=== PATIENT | male | born 1940 | race Caucasian/White ===

== ENCOUNTER 2016-09-08 09:10 | Observation (INO) | payer OTHER ==
[~2016-09-08] VITALS: Ht 188 cm; Wt 96.0 kg
[2016-09-08] VITALS (8 sets, daily range): BP systolic 116–153; BP diastolic 64–93; PULSE 72–83; RESP 12–22; TEMP 97.6–99.8; O2SAT 96–100
--- NOTE | 2016-09-08 09:43 | PD ---
HPI Chief Complaint: Skin Problem Time Seen by Provider: 09:35 Travel History International Travel<30 days: No Contact w/Intl Traveler<30days: No Traveled to known affect area: No History of Present Illness HPI This patient is 75-year-old male who lives alone. He denies having any relatives in the area. He does not ever go to doctors. He takes no medications. Seems like he basically neglects himself. He is had severe edema for years starting in the feet and working its way up his legs and thighs now on his scrotum and abdominal wall. He decided to come in today to the emergency room to have it checked out. He has no formal diagnosis but as noted never goes to a doctor. He denies drinking or smoking or drug use. He says he quit driving a few years ago and walks everywhere that he needs to go. Symptoms severity is moderate. Duration is many years. No alleviating factors PFSH Social History Alcohol Use: No Tobacco Use: No Substance Use: No Allergies-Medications (Allergen,Severity, Reaction): Coded Allergies: No Known Allergies (Unverified , 09/08/16) Review of Systems General / Constitutional: No: Fever Eyes: No: Visual changes HENT: No: Headaches Cardiovascular: Positive: Irregular Rhythm, Edema, No: Chest Pain or Discomfort Respiratory: No: Shortness of Breath Gastrointestinal: No: Abdominal Pain Genitourinary: No: Dysuria Musculoskeletal: Positive: Weakness, Edema, No: Pain Skin: No Rash Neurologic: Positive: Weakness Psychiatric: No: Depression Endocrine: No: Polydipsia Hematologic/Lymphatic: No: Easy Bruising Physical Exam Narrative GENERAL: Well-nourished, well-developed patient in no apparent distress. SKIN: Focused skin assessment reveals chronic hyperpigmentation and skin thickening changes in the feet and lower legs. Skin is Warm and dry. Candidal rash under the scrotum. HEAD: Atraumatic. Normocephalic. EYES: Pupils equal and round. No scleral icterus. No injection or drainage. ENT: No nasal bleeding or discharge. Mucous membranes pink and moist. NECK: Trachea midline. No JVD. CARDIOVASCULAR: Regular rate and rhythm. No murmur appreciated. RESPIRATORY: No accessory muscle use. Clear to auscultation. Breath sounds equal bilaterally. GASTROINTESTINAL: Abdomen soft, non-tender, nondistended. Hepatic and splenic margins not palpable. MUSCULOSKELETAL: No obvious deformities. No clubbing. No cyanosis. Prominent pitting edema in the feet and lower legs and thighs and abdominal wall in the lower quadrants. NEUROLOGICAL: Awake and alert. No obvious cranial nerve deficits. Motor grossly within normal limits. Normal speech. PSYCHIATRIC: Appropriate mood and affect; insight and judgment poor. : Has massive scrotal edema. There is a candidal rash in the groin. Has some edema of the penile shaft as well. Data Data Last Documented VS Vital Signs Date Time Temp Pulse Resp B/P Pulse Ox O2 Delivery O2 Flow Rate FiO2 09/08/16 11:01 72 16 143/84 96 Room Air 09/08/16 09:18 99.8 Orders Complete Blood Count With Diff (09/08/16 09:35) Comprehensive Metabolic Panel (09/08/16 09:35) B-Type Natriuretic Peptide (09/08/16 09:35) Act Partial Throm Time (Ptt) (09/08/16 09:35) Prothrombin Time / Inr (Pt) (09/08/16 09:35) Iv Access Insert/Monitor (09/08/16 09:35) Electrocardiogram (09/08/16 09:35) Ecg Monitoring (09/08/16 09:35) Oximetry (09/08/16 09:35) Chest, Single Ap (09/08/16 09:35) Sodium Chloride 0.9% Flush (Ns Flush) (09/08/16 09:45) Furosemide Inj (Lasix Inj) (09/08/16 09:45) Admit Order (Ed Use Only) (09/08/16 11:49) Labs Laboratory Tests Test 09/08/16 09/08/16 09:45 10:45 White Blood Count 5.6 TH/MM3 Red Blood Count 3.98 MIL/MM3 Hemoglobin 12.8 GM/DL Hematocrit 36.8 % Mean Corpuscular Volume 92.5 FL Mean Corpuscular Hemoglobin 32.2 PG Mean Corpuscular Hemoglobin 34.8 % Concent Red Cell Distribution Width 16.5 % Platelet Count 115 TH/MM3 Mean Platelet Volume 10.1 FL Neutrophils (%) (Auto) 68.9 % Lymphocytes (%) (Auto) 16.8 % Monocytes (%) (Auto) 11.9 % Eosinophils (%) (Auto) 1.8 % Basophils (%) (Auto) 0.6 % Neutrophils # (Auto) 3.9 TH/MM3 Lymphocytes # (Auto) 0.9 TH/MM3 Monocytes # (Auto) 0.7 TH/MM3 Eosinophils # (Auto) 0.1 TH/MM3 Basophils # (Auto) 0.0 TH/MM3 CBC Comment DIFF FINAL Differential Comment Prothrombin Time 12.6 SEC Prothromb Time International 1.1 RATIO Ratio Activated Partial 31.1 SEC Thromboplast Time Sodium Level 128 MEQ/L Potassium Level 4.0 MEQ/L Chloride Level 96 MEQ/L Carbon Dioxide Level 24.1 MEQ/L Anion Gap 8 MEQ/L Blood Urea Nitrogen 25 MG/DL Creatinine 0.76 MG/DL Estimat Glomerular Filtration 100 ML/MIN Rate Random Glucose 98 MG/DL Calcium Level 8.5 MG/DL Total Bilirubin 1.5 MG/DL Aspartate Amino Transf 42 U/L (AST/SGOT) Alanine Aminotransferase 35 U/L (ALT/SGPT) Alkaline Phosphatase 97 U/L B-Type Natriuretic Peptide 530 PG/ML Total Protein 6.3 GM/DL Albumin 3.1 GM/DL MDM Medical Decision Making Medical Screen Exam Complete: Yes Emergency Medical Condition: Yes Medical Record Reviewed: Yes Differential Diagnosis Anasarca, liver failure, renal failure, congestive heart failure Narrative Course I have reviewed the patient's electronic medical record. Patient is never been to the ER before. Patient has normal vital signs but has prominent anasarca. IV placed I gave him 60 mg IV Lasix CBC shows no major abnormality Metabolic profile shows normal renal function LFTs are normal BNP is slightly elevated Coagulation studies are normal I reviewed his EKG which shows atrial fibrillation but rate controlled I reviewed his chest x-ray shows cardiomegaly with some findings of congestive failure Is put out over a liter and diuresis so far. He has significant anasarca with CHF and A. fib I reviewed with hospitalist who recommends observation on telemetry Admission order will be changed to reflect that. Extended cardiac monitoring Diagnosis Primary Impression: Anasarca Additional Impressions: Congestive heart failure Qualified Code: I50.9 - Acute congestive heart failure, unspecified congestive heart failure type Atrial fibrillation Qualified Code: I48.91 - Atrial fibrillation, unspecified type Admitting Information Admitting Physician Requests: Observation Nahid Nugent MD Sep 08, 2016 09:43
[2016-09-08] MEDS ORDERED: SODIUM CHLORIDE 0.9% FLUSH 10 ML FLUSH IVF PRN (09:45)
[2016-09-08] MEDS ORDERED: FUROSEMIDE 100 MG/10 ML VIAL IVP ONE (09:45)
[2016-09-08 10:20] LABS: AUTOMATED NEUTROPHIL # 3.9 TH/MM3 (1.8-7.7); BASOPHIL % 0.6 % (0.0-2.0); EOSINOPHIL # 0.1 TH/MM3 (0-0.4); EOSINOPHIL % 1.8 % (0.0-4.0); HEMATOCRIT 36.8 % (39.0-51.0); HEMO FLAGS DIFF FINAL; LYMPH % 16.8 % (9.0-44.0); LYMPHOCYTE # 0.9 TH/MM3 (1.0-4.8); MEAN CELL VOLUME 92.5 FL (80.0-100.0); MEAN CORPUSCULAR HEMOGLOBIN 32.2 PG (27.0-34.0); MEAN CORPUSCULAR HGB CONC 34.8 % (32.0-36.0); MONO % 11.9 % (0.0-8.0); NEUT % 68.9 % (16.0-70.0); PLATELET COUNT 115 TH/MM3 (150-450); RED BLOOD COUNT 3.98 MIL/MM3 (4.50-5.90); RED CELL DISTRIBUTION WIDTH 16.5 % (11.6-17.2); WHITE BLOOD COUNT 5.6 TH/MM3 (4.0-11.0)
[2016-09-08 10:27] LABS: INTERNATIONAL NORMALIZED RATIO 1.1 RATIO; PROTHROMBIN TIME - PATIENT 12.6 SEC (9.8-11.6)
[2016-09-08 10:28] LABS: APTT (PATIENT) 31.1 SEC (24.3-30.1)
--- NOTE | 2016-09-08 10:29 | RADRPT ---
EXAM DATE/TIME: 09/08/2016 10:10 [facility] COMPARISON: No previous studies available for comparison. INDICATIONS : Short of breath, swelling, weight gain. MEDICAL HISTORY : None. SURGICAL HISTORY : None. ENCOUNTER: Initial ACUITY: 1 day PAIN SCORE: 0/10 LOCATION: Bilateral chest FINDINGS: The cardiac silhouette is enlarged in transverse diameter. There are findings of congestive heart dandre lure with interstitial and alveolar opacity bilaterally. No pleural effusions are identified. CONCLUSION: 1. Cardiomegaly and findings of congestive heart failure. Nicholas Edwards MD on September 08, 2016 at 10:26 Board Certified Radiologist. This report was verified electronically.
[2016-09-08 11:14] LABS: ALT (GPT) 35 U/L (12-78); ANION GAP 8 MEQ/L (5-15); AST (GOT) 42 U/L (15-37); BICARBONATE 24.1 MEQ/L (21.0-32.0); BLOOD UREA NITROGEN 25 MG/DL (7-18); CHLORIDE 96 MEQ/L (98-107); GLOMERULAR FILTRATION RATE 100 ML/MIN (>89); SODIUM (NA) 128 MEQ/L (136-145)
[2016-09-08 11:16] LABS: ALKALINE PHOSPHATASE 97 U/L (45-117); TOTAL BILIRUBIN ADULT 1.5 MG/DL (0.2-1.0)
--- NOTE | 2016-09-08 12:37 | HHI.PR ---
Subjective Remarks with LE edema, sob, responding to lasix See HPI. Objective Vitals Vital Signs Date Time Temp Pulse Resp B/P Pulse Ox O2 Delivery O2 Flow Rate FiO2 09/08/16 11:01 72 16 143/84 96 Room Air 09/08/16 09:46 74 16 150/87 100 Room Air 09/08/16 09:33 83 18 150/87 97 Room Air 09/08/16 09:18 99.8 81 12 153/93 98 I/O 09/07/16 09/07/16 09/07/16 09/08/16 09/08/16 09/08/16 07:00 15:00 23:00 07:00 15:00 23:00 Output Total 1375 ml Balance -1375 ml Output Urine Total 1375 ml Result Diagram: 09/08/16 0945 09/08/16 1045 Imaging Last Impressions Chest X-Ray 09/08/16 0935 Signed Impressions: Service Date/Time: Thursday, September 08, 2016 10:10 - CONCLUSION: 1. Cardiomegaly and findings of congestive heart failure. Nicholas Edwards MD Objective Remarks GENERAL: The patient is a very pleasant 75-year-old male, scaly, appears in not acute distress. SKIN: Warm and dry. HEAD: Atraumatic. Normocephalic. EYES: Pupils equal and round. No scleral icterus. No injection or drainage. ENT: No nasal bleeding or discharge. Mucous membranes pink and moist. NECK: Trachea midline. No JVD. CARDIOVASCULAR: Regular rate and rhythm. RESPIRATORY: No accessory muscle use. Decreased breath sounds at the bases. No productive cough. GASTROINTESTINAL: Abdomen soft, non-tender, nondistended. Hepatic and splenic margins not palpable. MUSCULOSKELETAL: Extremities without clubbing, cyanosis. Severe lower extremity edema 3+ to thigh and also noted scrotal edema. No obvious deformities. NEUROLOGICAL: Awake and alert. No obvious cranial nerve deficits. Motor grossly within normal limits. Five out of 5 muscle strength in the arms and legs. Normal speech. PSYCHIATRIC: Appropriate mood and affect; insight and judgment normal. A/P Assessment and Plan 75-year-old male with Newly onset A. fib Newly onset CHF Severe lower extremity edema and scrotal edema Cardiology consulted Dr Simpson evaluated patient Start IV lasix 40 mg IV BID, and monitor UPO and weight Start Aspirin 81 mg PO daily, Coreg 3.125 mg PO BID. Start Entresto Ordered Echo Monitor electrolytes and replace as need Check cardiac markers, so far trop neg x1 Check Lipid Profile and a1c Check TSH DVT ppx with SCD/TEDs Soco Black MD Sep 08, 2016 12:37
[2016-09-08] MEDS ORDERED: MAGNESIUM HYDROXIDE SUSP 30 ML CUP PO PRN (12:45)
[2016-09-08] MEDS ORDERED: TEMAZEPAM 15 MG CAP PO PRN (12:45)
[2016-09-08] MEDS ORDERED: ACETAMINOPHEN 325 MG TAB PO PRN (12:45)
[2016-09-08] MEDS ORDERED: ONDANSETRON HCL 4 MG/2 ML VIAL IVP PRN (12:45)
[2016-09-08] MEDS ORDERED: SODIUM CHLORIDE 0.9% FLUSH 10 ML FLUSH IV FLUSH PRN (12:45)
[2016-09-08] MEDS: ENOXAPARIN SODIUM 40 MG/0.4 ML SYRINGE SQ SCH (14:00)
--- NOTE | 2016-09-08 15:16 | PD.CONS ---
HPI Service Cardiology Consult Requested By Hospitalist Reason for Consult CHF Afib Primary Care Physician No Primary Care Physician History of Present Illness 75 y/o M with no pmhx admitted with anasarca and shortness of breath. Patient reports he was on his usual state of health until 3-4 days ago when his bilateral chronic leg swelling propagated to his thighs and was associated with mild shortness of breath. He states being very active at home. In the past he has noticed heart rate in the 170's however he never sought medical assistance. 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 He denies chest pain, chest trauma , recent viral illnesses, recent travels, fever, chills, nausea, vomiting or diarrhea. He takes no medications. He lives alone. In the ER he was given IV Lasix. EKG shows atrial fibrillation with adequate ventricular response. Review of Systems Consitutional: DENIES: Fatigue, Fever, Chills, Weight gain, Weight loss Eyes: DENIES: Amaurosis Fugax, Change in vision HEENT: DENIES: Lightheadedness, Change in hearing Respiratory: COMPLAINS OF: Shortness of breath Cardiovascular: DENIES: See HPI, Chest pain, Palpitations, Syncope, Tachycardia Gastrointestinal: DENIES: Nausea, Vomiting, Change in bowel habits, Reflux, Bloody stools, Melena Genitourinary: DENIES: Urinary incontinence, Difficulty voiding Integumentary: DENIES: Rash Neurologic: DENIES: Tingling or numbness, Memory problems, Poor Balance, Stroke symptoms Musculoskeletal: DENIES: Joint pain, Muscle pain, Limited range of motion, Back pain Psychiatric: DENIES: Anxiety, Depression, Sleep disturbances Hematologic: DENIES: Bruising tendencies, Bleeding tendencies Endocrine: COMPLAINS OF: Weight gain, DENIES: Weight loss, Thyroid disease Past Family Social History Allergies: Coded Allergies: No Known Allergies (Unverified , 09/08/16) Past Medical History ?Palpitations Past Surgical History None Reported Medications Reported Meds & Active Scripts Active No Active Prescriptions or Reported Medications Active Ordered Medications Current Medications Medications (Trade) Dose Ordered Sig/Lefty Route Start Time Stop Time Status Last Admin (NS Flush) 2 ml UNSCH PRN IV FLUSH 09/08/16 12:45 (NS Flush) 2 ml BID IV FLUSH 09/08/16 21:00 (Tylenol) 650 mg Q4H PRN PO 09/08/16 12:45 (Zofran Inj) 4 mg Q6H PRN IVP 09/08/16 12:45 (Milk Of Magnada Liq) 30 ml Q12H PRN PO 09/08/16 12:45 (Restoril) 15 mg HS PRN PO 09/08/16 12:45 (Lovenox Inj) 40 mg Q24H SQ 09/08/16 14:00 09/08/16 14:00 (Lasix Inj) 40 mg BID@,18 IV PUSH 09/08/16 18:00 Family History Noncontributory Social History No alcohol No illicit drug use No tobacco Physical Exam Vital Signs Vital Signs Date Time Temp Pulse Resp B/P Pulse Ox O2 Delivery O2 Flow Rate FiO2 09/08/16 13:01 72 18 123/87 98 Room Air 09/08/16 11:01 72 16 143/84 96 Room Air 09/08/16 09:46 74 16 150/87 100 Room Air 09/08/16 09:33 83 18 150/87 97 Room Air 09/08/16 09:18 99.8 81 12 153/93 98 Physical Exam GENERAL: Well-nourished, well-developed patient. SKIN: Warm and dry. HEAD: Normocephalic. EYES: Icteric. No injection or drainage. NECK: + JVD. CARDIOVASCULAR: PMI displaced, Irregularly irregularly, 3/6 MARISELA radiating to the axilla, no rubs. RESPIRATORY: Breath sounds equal bilaterally. No accessory muscle use. Inspiratory wheezing GASTROINTESTINAL: Abdomen soft, non-tender, nondistended. No organomegaly EXTREMITIES: No cyanosis, +3 edema up to the thighs NEUROLOGICAL: Awake, alert, and oriented x 3. Non-focal. Laboratory Laboratory Tests Test 09/08/16 09/08/16 09:45 10:45 White Blood Count 5.6 Red Blood Count 3.98 Hemoglobin 12.8 Hematocrit 36.8 Mean Corpuscular Volume 92.5 Mean Corpuscular Hemoglobin 32.2 Mean Corpuscular Hemoglobin 34.8 Concent Red Cell Distribution Width 16.5 Platelet Count 115 Mean Platelet Volume 10.1 Neutrophils (%) (Auto) 68.9 Lymphocytes (%) (Auto) 16.8 Monocytes (%) (Auto) 11.9 Eosinophils (%) (Auto) 1.8 Basophils (%) (Auto) 0.6 Neutrophils # (Auto) 3.9 Lymphocytes # (Auto) 0.9 Monocytes # (Auto) 0.7 Eosinophils # (Auto) 0.1 Basophils # (Auto) 0.0 CBC Comment DIFF FINAL Differential Comment Prothrombin Time 12.6 Prothromb Time International 1.1 Ratio Activated Partial 31.1 Thromboplast Time Sodium Level 128 Potassium Level 4.0 Chloride Level 96 Carbon Dioxide Level 24.1 Anion Gap 8 Blood Urea Nitrogen 25 Creatinine 0.76 Estimat Glomerular Filtration 100 Rate Random Glucose 98 Calcium Level 8.5 Total Bilirubin 1.5 Aspartate Amino Transf 42 (AST/SGOT) Alanine Aminotransferase 35 (ALT/SGPT) Alkaline Phosphatase 97 B-Type Natriuretic Peptide 530 Total Protein 6.3 Albumin 3.1 Result Diagram: 09/08/16 0945 09/08/16 1045 Imaging Last Impressions Chest X-Ray 09/08/16 0935 Signed Impressions: Service Date/Time: Thursday, September 08, 2016 10:10 - CONCLUSION: 1. Cardiomegaly and findings of congestive heart failure. Nicholas Edwards MD Assessment and Plan Problem List: (1) Congestive heart failure Assessment and Plan: 75 y/o M with no previous cardiac history admitted with new onset heart failure. EKG showing atrial fibrillation ?new or old. He remains afebrile and hemodynamically stable. Good response to IV Lasix. DDx: Ischemic vs. Non- ischemic CMP. 2DEcho Pending. Afib controlled, CHADSVasc=3. OAC recommended, however given possibility of invasive cardiac work up during this hospitalizations hold for now. Recommendations: 1. Start Aspirin 81 mg PO daily 2. Start Coreg 3.125 mg PO BID 3. Start Entresto 4. F/U Echo results 5. Daily weights 6. Strict I&O 7. Avoid electrolytes abnormalities 8. Cycle cardiac markers 9. Lipid Profile 10. TSH 11. Continue IV diuresis Thank you for the opportunity to take part in the care of this patient Further therapy to be determine (2) Atrial fibrillation (3) Anasarca Problem Qualifiers (1) Congestive heart failure: Qualified Code: I50.9 - Acute congestive heart failure, unspecified congestive heart failure type (2) Atrial fibrillation: Qualified Code: I48.91 - Atrial fibrillation, unspecified type Benjy Arrieta MD Sep 08, 2016 15:16
--- NOTE | 2016-09-08 16:06 | EKG ---
Date Performed: 09/08/2016 Time Performed: 09:54:31 PTAGE: 75 years EKG: ATRIAL FIBRILLATION INDETERMINATE AXIS LOW QRS VOLTAGE IN EXTREMITY LEADS INCOMPLETE RIGHT BUNDLE BRANCH BLOCK POSSIBLE ANTERIOR MYOCARDIAL INFARCTION ABNORMAL ECG NO PREVIOUS TRACING DOCTOR: Shreya Hanson Interpretating Date/Time 09/08/2016 16:05:10
[2016-09-08] MEDS: FUROSEMIDE 40 MG/4 ML VIAL IV PUSH SCH (16:42)
[2016-09-08] MEDS: ASPIRIN EC 81 MG TABEC PO SCH (16:42)
[2016-09-08 16:57] LABS: CREATINE KINASE 272 U/L (39-308)
[2016-09-08 17:10] LABS: CKMB 19.6 NG/ML (0.5-3.6)
--- NOTE | 2016-09-08 17:11 | HHI.HP ---
HPI Service [facility] Primary Care Physician No Primary Care Physician Admission Diagnosis anasarca,CHF exac,A fib Diagnoses: Chief Complaint: le edema. sob Travel History International Travel<30 Days: No Contact w/Intl Traveler <30 Da: No Traveled to Known Affected Are: No History of Present Illness 75 y/o M with no pmhx came to the emergency room with complaints of shortness of breath and progressively worsening lower extremity edema. Patient reports he was on his usual state of health until 3-4 days ago when his bilateral chronic leg swelling propagated to his thighs and was associated with mild shortness of breath. He states being very active at home. In the past he has noticed heart rate in the 170's however he never sought medical assistance. 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 He denies chest pain, chest trauma, recent viral illnesses, recent travels, fever, chills, nausea, vomiting or diarrhea. He takes no medications. He lives alone. In the ER he was given IV Lasix. EKG shows atrial fibrillation with adequate ventricular response HR in 80s. Says he is urinating well after the Lasix. Says he noted lower extremity edema for the past 6 months however is getting worse, and also he was not able to urinate much. Review of Systems Except as stated in HPI: all other systems reviewed are Neg Past Family Social History Past Medical History Says has been healthy Past Surgical History Bilateral inguinal hernia with repair Reported Medications Reported Meds & Active Scripts Active No Active Prescriptions or Reported Medications Allergies: Coded Allergies: No Known Allergies (Unverified , 09/08/16) Family History Father had peripheral vascular disease, at the age of 80 Mother possible she had AK but he is not sure, smoker during lifetime Social History Denies history of illicit drug use, alcohol use or tobacco use Physical Exam Vital Signs Vital Signs Date Time Temp Pulse Resp B/P Pulse Ox O2 Delivery O2 Flow Rate FiO2 09/08/16 13:01 72 18 123/87 98 Room Air 09/08/16 11:01 72 16 143/84 96 Room Air 09/08/16 09:46 74 16 150/87 100 Room Air 09/08/16 09:33 83 18 150/87 97 Room Air 09/08/16 09:18 99.8 81 12 153/93 98 Physical Exam GENERAL: The patient is a very pleasant 75-year-old male, scaly, appears in not acute distress. SKIN: Warm and dry. HEAD: Atraumatic. Normocephalic. EYES: Pupils equal and round. No scleral icterus. No injection or drainage. ENT: No nasal bleeding or discharge. Mucous membranes pink and moist. NECK: Trachea midline. No JVD. CARDIOVASCULAR: Regular rate and rhythm. RESPIRATORY: No accessory muscle use. Decreased breath sounds at the bases. No productive cough. GASTROINTESTINAL: Abdomen soft, non-tender, nondistended. Hepatic and splenic margins not palpable. MUSCULOSKELETAL: Extremities without clubbing, cyanosis. Severe lower extremity edema 3+ to thigh and also noted scrotal edema. No obvious deformities. NEUROLOGICAL: Awake and alert. No obvious cranial nerve deficits. Motor grossly within normal limits. Five out of 5 muscle strength in the arms and legs. Normal speech. PSYCHIATRIC: Appropriate mood and affect; insight and judgment normal. Laboratory Laboratory Tests Test 09/08/16 09/08/16 09:45 10:45 White Blood Count 5.6 Red Blood Count 3.98 Hemoglobin 12.8 Hematocrit 36.8 Mean Corpuscular Volume 92.5 Mean Corpuscular Hemoglobin 32.2 Mean Corpuscular Hemoglobin 34.8 Concent Red Cell Distribution Width 16.5 Platelet Count 115 Mean Platelet Volume 10.1 Neutrophils (%) (Auto) 68.9 Lymphocytes (%) (Auto) 16.8 Monocytes (%) (Auto) 11.9 Eosinophils (%) (Auto) 1.8 Basophils (%) (Auto) 0.6 Neutrophils # (Auto) 3.9 Lymphocytes # (Auto) 0.9 Monocytes # (Auto) 0.7 Eosinophils # (Auto) 0.1 Basophils # (Auto) 0.0 CBC Comment DIFF FINAL Differential Comment Prothrombin Time 12.6 Prothromb Time International 1.1 Ratio Activated Partial 31.1 Thromboplast Time Sodium Level 128 Potassium Level 4.0 Chloride Level 96 Carbon Dioxide Level 24.1 Anion Gap 8 Blood Urea Nitrogen 25 Creatinine 0.76 Estimat Glomerular Filtration 100 Rate Random Glucose 98 Calcium Level 8.5 Total Bilirubin 1.5 Aspartate Amino Transf 42 (AST/SGOT) Alanine Aminotransferase 35 (ALT/SGPT) Alkaline Phosphatase 97 Total Creatine Kinase 272 Troponin I 0.04 B-Type Natriuretic Peptide 530 Total Protein 6.3 Albumin 3.1 Result Diagram: 09/08/16 0945 09/08/16 1045 Imaging Last Impressions Chest X-Ray 09/08/16 0935 Signed Impressions: Service Date/Time: Thursday, September 08, 2016 10:10 - CONCLUSION: 1. Cardiomegaly and findings of congestive heart failure. Nicholas Ewdards MD Assessment and Plan Assessment and Plan 75-year-old male with Newly onset A. fib Newly onset CHF Severe lower extremity edema and scrotal edema Cardiology consulted Dr Simpson evaluated patient Start IV lasix 40 mg IV BID, and monitor UPO and weight Start Aspirin 81 mg PO daily, Coreg 3.125 mg PO BID. Start Entresto 2D ECHO pending CHADS Vasc score of 3 , anticoagul per cardioloy , hold at this time in case needs further work up /cath Monitor electrolytes and replace as need Check cardiac markers, so far trop neg x1 Check Lipid Profile and a1c Check TSH DVT ppx with SCD/TEDs Discussed Condition With Patient, nurse, ED physician Physician Certification 2 Midnight Certification Type: Admission for Inpatient Services Order for Inpatient Services The services are ordered in accordance with Medicare regulations or non- Medicare payer requirements, as applicable. In the case of services not specified as inpatient-only, they are appropriately provided as inpatient services in accordance with the 2-midnight benchmark. Estimated LOS (days): 3 days is the estimated time the patient will need to remain in the hospital, assuming treatment plan goals are met and no additional complications. Post-Hospital Plan: Home Soco Black MD Sep 08, 2016 17:11
[2016-09-08 18:59] LABS: CREATINE KINASE 254 U/L (39-308)
[2016-09-08] MEDS: SACUBITRIL/VALSARTAN 24 MG-26 MG TAB PO SCH (21:09)
[2016-09-08] MEDS: CARVEDILOL 3.125 MG TAB PO SCH (21:09)
[2016-09-08] MEDS: SODIUM CHLORIDE 0.9% FLUSH 10 ML FLUSH IV FLUSH SCH (21:15)
[2016-09-09] VITALS (8 sets, daily range): BP systolic 97–111; BP diastolic 61–73; PULSE 65–81; RESP 16–20; TEMP 96.6–97.5; O2SAT 94–98
[2016-09-09 04:06] LABS: AUTOMATED NEUTROPHIL # 3.2 TH/MM3 (1.8-7.7); BASOPHIL % 0.5 % (0.0-2.0); EOSINOPHIL # 0.2 TH/MM3 (0-0.4); EOSINOPHIL % 3.2 % (0.0-4.0); LYMPH % 17.7 % (9.0-44.0); LYMPHOCYTE # 0.9 TH/MM3 (1.0-4.8); MEAN CELL VOLUME 93.1 FL (80.0-100.0); MEAN CORPUSCULAR HEMOGLOBIN 31.5 PG (27.0-34.0); MEAN CORPUSCULAR HGB CONC 33.8 % (32.0-36.0); MONO % 13.2 % (0.0-8.0); NEUT % 65.4 % (16.0-70.0); PLATELET COUNT 81 TH/MM3 (150-450); RED BLOOD COUNT 3.87 MIL/MM3 (4.50-5.90); RED CELL DISTRIBUTION WIDTH 16.3 % (11.6-17.2); WHITE BLOOD COUNT 4.9 TH/MM3 (4.0-11.0)
[2016-09-09 04:11] LABS: HEMO FLAGS AUTO DIFF
[2016-09-09 04:26] LABS: ANION GAP 8 MEQ/L (5-15); BICARBONATE 26.7 MEQ/L (21.0-32.0); BLOOD UREA NITROGEN 25 MG/DL (7-18); CHLORIDE 97 MEQ/L (98-107); GLOMERULAR FILTRATION RATE 114 ML/MIN (>89); POTASSIUM 3.7 MEQ/L (3.5-5.1); SODIUM (NA) 132 MEQ/L (136-145)
[2016-09-09 04:29] LABS: HDL CHOLESTEROL 32.1 MG/DL (40.0-60.0); LDL CHOLESTEROL 78 MG/DL (0-99)
[2016-09-09 04:30] LABS: CREATINE KINASE 274 U/L (39-308); FREE T4 1.29 NG/DL (0.76-1.46)
[2016-09-09 04:42] LABS: CKMB 16.8 NG/ML (0.5-3.6)
[2016-09-09 06:52] LABS: PLATELET ESTIMATE SMEAR LOW (NORMAL); PLATELET MORPHOLOGY NORMAL (NORMAL); SCAN/DIFF AUTO DIFF CONFIRMED
--- NOTE | 2016-09-09 07:34 | HHI.PR ---
Subjective Remarks Patient's Sofia or shortness of breath, soup with lower extremity edema, however she said he was drinking more water yesterday. No nausea, vomiting, diarrhea. He does complains of hard constipation. No fever or chills or night. Objective Vitals Vital Signs Date Time Temp Pulse Resp B/P Pulse Ox O2 Delivery O2 Flow Rate FiO2 09/09/16 04:00 97.5 76 18 105/64 94 09/09/16 00:00 97.5 81 18 97/63 96 09/08/16 20:00 83 09/08/16 20:00 97.9 73 18 129/76 99 09/08/16 17:29 81 09/08/16 16:30 97.6 77 22 116/64 97 09/08/16 13:01 72 18 123/87 98 Room Air 09/08/16 11:01 72 16 143/84 96 Room Air 09/08/16 09:46 74 16 150/87 100 Room Air 09/08/16 09:33 83 18 150/87 97 Room Air 09/08/16 09:18 99.8 81 12 153/93 98 I/O 09/08/16 09/08/16 09/08/16 09/09/16 09/09/16 09/09/16 07:00 15:00 23:00 07:00 15:00 23:00 Intake Total 240 ml 240 ml Output Total 1375 ml 850 ml 1000 ml Balance -1375 ml -610 ml -760 ml Intake Oral 240 ml 240 ml Output Urine Total 1375 ml 850 ml 1000 ml # Bowel Movements 0 Result Diagram: 09/09/16 0331 09/09/16 0331 Imaging Last Impressions Chest X-Ray 09/08/16 0935 Signed Impressions: Service Date/Time: Thursday, September 08, 2016 10:10 - CONCLUSION: 1. Cardiomegaly and findings of congestive heart failure. Nicholas Edwards MD Objective Remarks GENERAL: The patient is a very pleasant 75-year-old male, scaly, appears in not acute distress. SKIN: Warm and dry. HEAD: Atraumatic. Normocephalic. EYES: Pupils equal and round. No scleral icterus. No injection or drainage. ENT: No nasal bleeding or discharge. Mucous membranes pink and moist. NECK: Trachea midline. No JVD. CARDIOVASCULAR: Regular rate and rhythm. RESPIRATORY: No accessory muscle use. Decreased breath sounds at the bases. No productive cough. GASTROINTESTINAL: Abdomen soft, non-tender, nondistended. Hepatic and splenic margins not palpable. MUSCULOSKELETAL: Extremities without clubbing, cyanosis. Severe lower extremity edema 3+ to thigh and also noted scrotal edema. No obvious deformities. NEUROLOGICAL: Awake and alert. No obvious cranial nerve deficits. Motor grossly within normal limits. Five out of 5 muscle strength in the arms and legs. Normal speech. PSYCHIATRIC: Appropriate mood and affect; insight and judgment normal. A/P Assessment and Plan 75-year-old male with Newly onset A. fib Newly onset CHF Severe lower extremity edema and scrotal edema Cardiology consulted Dr Simpson evaluated patient Start IV lasix 40 mg IV BID, and monitor UPO and weight Start Aspirin 81 mg PO daily, Coreg 3.125 mg PO BID. Start Entresto Ordered Echo Monitor electrolytes and replace as need Check cardiac markers, so far trop neg x1 Check Lipid Profile and a1c Check TSH elevated, however normal free T4, recommend recheck in TSH as outpatient patient with subclinical hypothyroidism DVT ppx with SCD/TEDs Discussed with the patient, nurse Soco Black MD Sep 09, 2016 07:34
[2016-09-09] MEDS: ASPIRIN EC 81 MG TABEC PO SCH (09:12)
[2016-09-09] MEDS: CARVEDILOL 3.125 MG TAB PO SCH ×2 (09:12→20:19)
[2016-09-09] MEDS: SACUBITRIL/VALSARTAN 24 MG-26 MG TAB PO SCH ×2 (09:12→20:19)
[2016-09-09] MEDS: SODIUM CHLORIDE 0.9% FLUSH 10 ML FLUSH IV FLUSH SCH ×2 (09:14→20:20)
[2016-09-09] MEDS: FUROSEMIDE 40 MG/4 ML VIAL IV PUSH SCH ×2 (09:14→17:52)
--- NOTE | 2016-09-09 12:00 | EC ---
Study Study Date:09/09/2016 STUDY CONCLUSIONS SUMMARY - Procedure narrative: Transthoracic echocardiography. Image quality was good. Scanning was performed from the parasternal, apical, and subcostal acoustic windows. - Left ventricle: The cavity size was normal. Wall thickness was normal. Systolic function was normal. The estimated ejection fraction was in the range of 55% to 60%. Wall motion was normal; there were no regional wall motion abnormalities. - Ventricular septum: Flattened septum throughout cardiac cycle suggesting elevated right ventricular pressure overload. - Aortic valve: Trileaflet; mildly thickened leaflets. Mild regurgitation. - Mitral valve: Prolapse of the posterior leaflet. Moderate eccentric, anteriorly directed regurgitation. - Left atrium: The atrium was moderately dilated. - Right atrium: The atrium was severely dilated. - Tricuspid valve: Severe regurgitation. - Pulmonary arteries: PA peak pressure: 64mm Hg (S). - Pericardium, extracardiac: There wasa trivial pericardial effusion. If LV function is below 40, please consider prescribing an ACEI or ARB or document rationale for non-use. PROCEDURE DATA STUDY STATUS: Elective. Procedure: Transthoracic echocardiography. Image quality was good. Scanning was performed from the parasternal, apical, and subcostal acoustic windows. Study completion: The patient tolerated the procedure well. Transthoracic echocardiography. M-mode, complete 2D, complete spectral Doppler, and color Doppler. Height: Height: 74in. Weight: Weight: 173.6lb. Body mass index: BMI: 22.3kg/m^2. Body surface area: BSA: 2.05m^2. Patient status: Inpatient. CARDIAC ANATOMY LEFT VENTRICLE: The cavity size was normal. Wall thickness was normal. Systolic function was normal. The estimated ejection fraction was in the range of 55% to 60%. Wall motion was normal; there were no regional wall motion abnormalities. AORTIC VALVE: Trileaflet; mildly thickened leaflets. Doppler: Transvalvular velocity was within the normal range. There was no stenosis. Mild regurgitation. Valve area: 2.03cm^2(VTI). Indexed valve area: 0.99cm^2/m^2 (VTI). Valve area: 2.19cm^2 (Vmax). Indexed valve area: 1.07cm^2/m^2 (Vmax). Mean gradient: 4mm Hg (S). AORTA: Aortic root: The aortic root was normal in size. MITRAL VALVE: Prolapse of the posterior leaflet. Doppler: Transvalvular velocity was within the normal range. There was no evidence for stenosis. Moderate eccentric, anteriorly directed regurgitation. Peak gradient: 9mm Hg (D). LEFT ATRIUM: The atrium was moderately dilated. RIGHT VENTRICLE: The cavity size was normal. Wall thickness was normal. VENTRICULAR SEPTUM: Flattened septum throughout cardiac cycle suggesting elevated right ventricular pressure overload. PULMONIC VALVE: Doppler: Transvalvular velocity was within the normal range. There was no evidence for stenosis. No regurgitation. TRICUSPID VALVE: Structurally normal valve. Doppler: Transvalvular velocity was within the normal range. Severe regurgitation. PULMONARY ARTERY: The main pulmonary artery was normal-sized. Systolic pressure was within the normal range. RIGHT ATRIUM: The atrium was severely dilated. PERICARDIUM: There wasa trivial pericardial effusion. SYSTEMIC VEINS: Inferior vena cava: The vessel was normal in size. Patient weight: 173.6lb _Ejection fraction:_ 65-75% _Fractional shortening:_ 32% up to 5Kg 5-11.5Kg 11.6-22.9Kg 23-45Kg 45-57Kg Aortic Root 7-13 <17 13-22 17-27 17-27 LA diam 6-13 <23 24-38 33-47 37-40 RVID 10-17 7-15 7-15 7-18 8-17 LVIDd 12-22 <32 24-38 33-47 37-40 LVPW 2-4 3-6 5-7 6-8 7-8 IVS 2-4 3-6 5-7 6-8 7-8 BASIC MEASUREMENTS ADULT NORMAL Left ventricle LV internal dimension, ED, chordal *60.7 mm 43-52 level, PLAX LV internal dimension, ES, chordal *38.4 mm 23-38 level, PLAX Fractional shortening, chordal level, 37 % >29 PLAX LV posterior wall thickness, ED 7.58 mm IVS/LVPW ratio, ED 1.02 <1.3 Ventricular septum Septal thickness, ED 7.74 mm Aortic valve Leaflet separation 24 mm 15-26 Aorta Root diameter, ED 34 mm Left atrium Anterior-posterior dimension 63 mm Anterior-posterior dimension index *3.07 cm/m^2 <2.2 Right ventricle RV internal dimension, ED, PLAX *57 mm 19-38 BASIC MEASUREMENTS ADULT NORMAL Aortic valve Leaflet separation 24 mm 15-26 DOPPLER MEASUREMENTS ADULT NORMAL Main pulmonary artery Pressure, S *64 mm Hg =30 Pressure, ED 10 mm Hg Aortic valve Peak velocity, S 127 cm/s Mean velocity, S 94.6 cm/s VTI, S 22.8 cm Mean gradient, S 4 mm Hg Valve area, VTI 2.03 cm^2 Valve area index, VTI 0.99 cm^2/m^2 Valve area, Vmax 2.19 cm^2 Valve area index, Vmax 1.07 cm^2/m^2 Regurgitant velocity, ED 412 cm/s Regurgitant deceleration 1640 cm/s^2 Regurgitant pressure half-time 750 ms Regurgitant gradient, ED 68 mm Hg Mitral valve Peak E-wave velocity 146 cm/s Deceleration time *131 ms 150-230 Peak gradient, D 9 mm Hg Tricuspid valve Regurgitant peak velocity 309 cm/s Peak RV-RA gradient, S 38 mm Hg Maximal regurgitant velocity 309 cm/s Systemic veins Estimated CVP 10 mm Hg Right ventricle RV pressure, S *65 mm Hg <30 Pulmonic valve Peak velocity, S 50.1 cm/s Regurgitant velocity, ED 23.7 cm/s LEGEND: Mean values are shown as u=mean value. Asterisk (*) moya values outside specified normal range. Prepared and signed by Jeremy Piña [id number]
--- NOTE | 2016-09-09 15:49 | PD.CARD.PN ---
Subjective Subjective Remarks no overnigh events ECHO reviewed Good urine output Objective Medications Current Medications Medications (Trade) Dose Ordered Sig/Lefty Route Start Time Stop Time Status Last Admin (NS Flush) 2 ml UNSCH PRN IV FLUSH 09/08/16 12:45 (NS Flush) 2 ml BID IV FLUSH 09/08/16 21:00 09/09/16 09:14 (Tylenol) 650 mg Q4H PRN PO 09/08/16 12:45 (Zofran Inj) 4 mg Q6H PRN IVP 09/08/16 12:45 (Milk Of Magnesia Liq) 30 ml Q12H PRN PO 09/08/16 12:45 (Restoril) 15 mg HS PRN PO 09/08/16 12:45 (Lovenox Inj) 40 mg Q24H SQ 09/08/16 14:00 09/08/16 14:00 (Lasix Inj) 40 mg BID@09,18 IV PUSH 09/08/16 18:00 09/09/16 09:14 (Entresto 24-26 Mg) 1 tab BID PO 09/08/16 21:00 09/09/16 09:12 (Coreg) 3.125 mg Q12HR PO 09/08/16 21:00 09/09/16 09:12 (Ecotrin Ec) 81 mg DAILY PO 09/08/16 16:00 09/09/16 09:12 Vital Signs / I&O Vital Signs Date Time Temp Pulse Resp B/P Pulse Ox O2 Delivery O2 Flow Rate FiO2 09/09/16 11:47 97.1 76 16 100/69 98 09/09/16 08:07 73 09/09/16 08:00 96.6 74 20 104/70 95 09/09/16 04:00 97.5 76 18 105/64 94 09/09/16 00:00 97.5 81 18 97/63 96 09/08/16 20:00 83 09/08/16 20:00 97.9 73 18 129/76 99 09/08/16 17:29 81 09/08/16 16:30 97.6 77 22 116/64 97 I/O 09/08/16 09/08/16 09/08/16 09/09/16 09/09/16 09/09/16 07:00 15:00 23:00 07:00 15:00 23:00 Intake Total 240 ml 240 ml 2 ml Output Total 1375 ml 850 ml 1000 ml Balance -1375 ml -610 ml -760 ml 2 ml Intake Oral 240 ml 240 ml IV Total 2 ml Output Urine Total 1375 ml 850 ml 1000 ml # Bowel Movements 0 Physical Exam GENERAL: Well-nourished, well-developed patient. Confused SKIN: Warm and dry. HEAD: Normocephalic. EYES: No scleral icterus. No injection or drainage. NECK: Supple, trachea midline. No JVD or lymphadenopathy. CARDIOVASCULAR: Irr Irr 3/6 MARISELA RESPIRATORY: Breath sounds equal bilaterally. No accessory muscle use. GASTROINTESTINAL: Abdomen soft, non-tender, nondistended. EXTREMITIES: +++edema. Laboratory Laboratory Tests Test 09/08/16 09/09/16 18:07 03:31 Total Creatine Kinase 254 U/L 274 U/L Creatine Kinase MB 16.0 NG/ML 16.8 NG/ML Troponin I 0.04 NG/ML 0.04 NG/ML Thyroid Stimulating Hormone 8.930 uIU/ML 3rd Gen White Blood Count 4.9 TH/MM3 Red Blood Count 3.87 MIL/MM3 Hemoglobin 12.2 GM/DL Hematocrit 36.0 % Mean Corpuscular Volume 93.1 FL Mean Corpuscular Hemoglobin 31.5 PG Mean Corpuscular Hemoglobin 33.8 % Concent Red Cell Distribution Width 16.3 % Platelet Count 81 TH/MM3 Mean Platelet Volume 8.7 FL Neutrophils (%) (Auto) 65.4 % Lymphocytes (%) (Auto) 17.7 % Monocytes (%) (Auto) 13.2 % Eosinophils (%) (Auto) 3.2 % Basophils (%) (Auto) 0.5 % Neutrophils # (Auto) 3.2 TH/MM3 Lymphocytes # (Auto) 0.9 TH/MM3 Monocytes # (Auto) 0.6 TH/MM3 Eosinophils # (Auto) 0.2 TH/MM3 Basophils # (Auto) 0.0 TH/MM3 CBC Comment AUTO DIFF Differential Comment AUTO DIFF CONFIRMED Platelet Estimate LOW Platelet Morphology Comment NORMAL Sodium Level 132 MEQ/L Potassium Level 3.7 MEQ/L Chloride Level 97 MEQ/L Carbon Dioxide Level 26.7 MEQ/L Anion Gap 8 MEQ/L Blood Urea Nitrogen 25 MG/DL Creatinine 0.68 MG/DL Estimat Glomerular Filtration 114 ML/MIN Rate Random Glucose 94 MG/DL Calcium Level 8.1 MG/DL B-Type Natriuretic Peptide 864 PG/ML Triglycerides Level 38 MG/DL Cholesterol Level 118 MG/DL LDL Cholesterol 78 MG/DL HDL Cholesterol 32.1 MG/DL Cholesterol/HDL Ratio 3.67 RATIO Free Thyroxine 1.29 NG/DL Imaging Last Impressions Chest X-Ray 09/08/16 0935 Signed Impressions: Service Date/Time: Thursday, September 08, 2016 10:10 - CONCLUSION: 1. Cardiomegaly and findings of congestive heart failure. Nicholas Edwards MD Assessment and Plan Problem List: (1) Congestive heart failure Assessment and Plan: 75 y/o M with new onset HF. Echo showing preserved LV systolic function with HUGE bilateral atria and SEVERE TR and MR. I have discuss with him the need to perform a BONNIE and LHC to further asses valves and coronaries respectively, however he refuses. He continue hemodynamically stable, responding to IV diuresis. Recommendations: Increase Lasix IV Cont strict I&O Cont Coreg, Entresto and Aspirin Daily weight Low sodium diet Encourage ambulation (2) Atrial fibrillation (3) Anasarca Problem Qualifiers (1) Congestive heart failure: Qualified Code: I50.9 - Acute congestive heart failure, unspecified congestive heart failure type (2) Atrial fibrillation: Qualified Code: I48.91 - Atrial fibrillation, unspecified type Benjy Arrieta MD Sep 09, 2016 15:49
[2016-09-09] MEDS: ENOXAPARIN SODIUM 40 MG/0.4 ML SYRINGE SQ SCH (16:30)
[2016-09-09 16:43] LABS: HEMOGLOBIN A1a 1.2 %; HEMOGLOBIN A1b 0.8 %; HEMOGLOBIN Ao 84.5 %; HEMOGLOBIN F 1.2 %; HEMOGLOBIN LA1C 1.8 %; HEMOGLOBIN P3 5.7 %
[2016-09-10] VITALS: BP 99/66; PULSE 81; RESP 17; TEMP 96.8; O2SAT 98
[2016-09-10 04:00] VITALS: BP 112/60; PULSE 74; RESP 16; TEMP 96.5; O2SAT 95
[2016-09-10 06:28] LABS: AUTOMATED NEUTROPHIL # 2.8 TH/MM3 (1.8-7.7); BASOPHIL % 0.8 % (0.0-2.0); EOSINOPHIL # 0.2 TH/MM3 (0-0.4); EOSINOPHIL % 3.9 % (0.0-4.0); HEMATOCRIT 37.7 % (39.0-51.0); HEMO FLAGS DIFF FINAL; LYMPHOCYTE # 1.1 TH/MM3 (1.0-4.8); MEAN CELL VOLUME 92.5 FL (80.0-100.0); MEAN CORPUSCULAR HGB CONC 34.6 % (32.0-36.0); MONO % 13.4 % (0.0-8.0); NEUT % 58.9 % (16.0-70.0); PLATELET COUNT 109 TH/MM3 (150-450); RED BLOOD COUNT 4.08 MIL/MM3 (4.50-5.90); RED CELL DISTRIBUTION WIDTH 15.7 % (11.6-17.2); WHITE BLOOD COUNT 4.8 TH/MM3 (4.0-11.0)
[2016-09-10 06:37] LABS: BICARBONATE 24.9 MEQ/L (21.0-32.0); MAGNESIUM 1.9 MG/DL (1.5-2.5); POTASSIUM 3.9 MEQ/L (3.5-5.1)
[2016-09-10 08:00] VITALS: BP 113/75; PULSE 69; RESP 20; TEMP 97.8; O2SAT 95
[2016-09-10 08:26] VITALS: O2SAT 96
[2016-09-10] MEDS ORDERED: LISI-519 PO (09:39)
[2016-09-10] MEDS ORDERED: CARV3.125 PO (09:39)
[2016-09-10] MEDS ORDERED: FURO40TA PO (09:39)
--- NOTE | 2016-09-10 09:41 | HHI.DS ---
Discharge Summary Admission Date Sep 08, 2016 at 11:50 Discharge Date: Sep 10, 2016 Admitting Diagnosis anasarca,CHF exac,A fib (1) Congestive heart failure ICD Code: I50.9 Diagnosis: Principal (2) Atrial fibrillation ICD Code: I48.91 Diagnosis: Principal (3) Anasarca ICD Code: R60.1 Diagnosis: Principal (4) Mitral valve regurgitation ICD Code: I34.0 Diagnosis: Principal (5) Tricuspid regurgitation ICD Code: I07.1 Diagnosis: Principal Procedures none Brief History - From Admission 75 y/o M with no pmhx came to the emergency room with complaints of shortness of breath and progressively worsening lower extremity edema. Patient reports he was on his usual state of health until 3-4 days ago when his bilateral chronic leg swelling propagated to his thighs and was associated with mild shortness of breath. He states being very active at home. In the past he has noticed heart rate in the 170's however he never sought medical assistance. 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 He denies chest pain, chest trauma, recent viral illnesses, recent travels, fever, chills, nausea, vomiting or diarrhea. He takes no medications. He lives alone. In the ER he was given IV Lasix. EKG shows atrial fibrillation with adequate ventricular response HR in 80s. Says he is urinating well after the Lasix. Says he noted lower extremity edema for the past 6 months however is getting worse, and also he was not able to urinate much. CBC/BMP: 09/10/16 0547 09/10/16 0547 Significant Findings Laboratory Tests Test 09/08/16 09/08/16 09/08/16 09/09/16 09:45 10:45 18:07 03:31 Red Blood Count 3.98 MIL/MM3 3.87 MIL/MM3 (4.50-5.90) (4.50-5.90) Hemoglobin 12.8 GM/DL 12.2 GM/DL (13.0-17.0) (13.0-17.0) Hematocrit 36.8 % 36.0 % (39.0-51.0) (39.0-51.0) Platelet Count 115 TH/MM3 81 TH/MM3 (150-450) (150-450) Monocytes (%) (Auto) 11.9 % 13.2 % (0.0-8.0) (0.0-8.0) Lymphocytes # (Auto) 0.9 TH/MM3 0.9 TH/MM3 (1.0-4.8) (1.0-4.8) Prothrombin Time 12.6 SEC (9.8-11.6) Activated Partial 31.1 SEC Thromboplast Time (24.3-30.1) Sodium Level 128 MEQ/L 132 MEQ/L (136-145) (136-145) Chloride Level 96 MEQ/L 97 MEQ/L (98-107) (98-107) Blood Urea Nitrogen 25 MG/DL (7-18) 25 MG/DL (7-18) Total Bilirubin 1.5 MG/DL (0.2-1.0) Aspartate Amino Transf 42 U/L (15-37) (AST/SGOT) Creatine Kinase MB 19.6 NG/ML 16.0 NG/ML 16.8 NG/ML (0.5-3.6) (0.5-3.6) (0.5-3.6) B-Type Natriuretic Peptide 530 PG/ML 864 PG/ML (0-100) (0-100) Total Protein 6.3 GM/DL (6.4-8.2) Albumin 3.1 GM/DL (3.4-5.0) Thyroid Stimulating Hormone 8.930 uIU/ML 3rd Gen (0.358-3.740) Platelet Estimate LOW (NORMAL) Calcium Level 8.1 MG/DL (8.5-10.1) Triglycerides Level 38 MG/DL (42-150) Cholesterol Level 118 MG/DL (120-200) HDL Cholesterol 32.1 MG/DL (40.0-60.0) Test 09/10/16 05:47 Red Blood Count 4.08 MIL/MM3 (4.50-5.90) Hematocrit 37.7 % (39.0-51.0) Platelet Count 109 TH/MM3 (150-450) Monocytes (%) (Auto) 13.4 % (0.0-8.0) Sodium Level 132 MEQ/L (136-145) Blood Urea Nitrogen 25 MG/DL (7-18) Calcium Level 8.1 MG/DL (8.5-10.1) Imaging Last Impressions Chest X-Ray 09/08/16 0935 Signed Impressions: Service Date/Time: Thursday, September 08, 2016 10:10 - CONCLUSION: 1. Cardiomegaly and findings of congestive heart failure. Nicholas Edwards MD PE at Discharge GENERAL: The patient is a very pleasant 75-year-old male, scaly, appears in not acute distress. SKIN: Warm and dry. HEAD: Atraumatic. Normocephalic. EYES: Pupils equal and round. No scleral icterus. No injection or drainage. ENT: No nasal bleeding or discharge. Mucous membranes pink and moist. NECK: Trachea midline. No JVD. CARDIOVASCULAR: Regular rate and rhythm. RESPIRATORY: No accessory muscle use. Decreased breath sounds at the bases. No productive cough. GASTROINTESTINAL: Abdomen soft, non-tender, nondistended. Hepatic and splenic margins not palpable. MUSCULOSKELETAL: Extremities without clubbing, cyanosis. Severe lower extremity edema 3+ to thigh and also noted scrotal edema. No obvious deformities. NEUROLOGICAL: Awake and alert. No obvious cranial nerve deficits. Motor grossly within normal limits. Five out of 5 muscle strength in the arms and legs. Normal speech. PSYCHIATRIC: Appropriate mood and affect; insight and judgment normal. Pt update on day of discharge Feels much better. Has a good urine OP. Satting well on room air. He is refusing any further work up. Patient is worried about insurance covering for his stay in the hospital and also for medications. Cardiology recommends entresto, however if not covered by insurance or unable to pay can have lisinopril instead, discussed with the patient. CM was also consulted to help with discount. Patient to follow up as OP with PCP and consultants. Hospital Course 75-year-old male with Newly onset A. fib Newly onset CHF Severe lower extremity edema and scrotal edema Cardiology consulted Dr Simpson evaluated patient ECHO with normal EF 55-60%, however with severe TR and MR. Cardiology recommends BONNIE and LHC to further asses valves and coronaries respectively, however he refuses. Start IV lasix 40 mg IV BID, and monitor UPO and weight , improving. He is satting well on room air. Has a good UOP. Switch to P at DC Start Aspirin 81 mg PO daily, Coreg 3.125 mg PO BID. Started Entresto, patient is worried about insurance covering his hospital stay as well as affording the meds. Discussed with the patient regarding entresto as well, if can't afford can have lisinopril instead. Case managements consulted to assist as well. Monitor electrolytes and replace as need Check cardiac markers, so far trop neg x1 Check Lipid Profile and a1c Check TSH elevated, however normal free T4, recommend recheck in TSH as outpatient patient with subclinical hypothyroidism DVT ppx with SCD/TEDs Discussed with the patient, nurse Improved. Patient refussing any other interventions. He is satting well on room air. He was discharged home in stable condition to follow up as OP with PCP and consultants. Pt Condition on Discharge: Stable Discharge Disposition: Discharge Home Discharge Time: <= 30 minutes Discharge Instructions DIET: Follow Instructions for: Heart Healthy Diet Activities you can perform: Regular-No Restrictions Follow up Referrals: Cardiology - 1 Year PCP Follow-up - 3-5 Days SNF/[facility]/ with [facility] Home New Medications: Aspirin (Aspirin) 81 Mg Chew 81 MG CHEW DAILY Blood Clot Prevention #30 Ref 0 TAB Furosemide (Furosemide) 40 Mg Tab 40 MG PO DAILY edema/chf #30 Ref 0 TAB Sacubitril-Valsartan (Entresto) 24-26 Mg Tab 1 TAB PO BID Heart Failure #60 Ref 0 TAB Carvedilol (Coreg) 3.125 Mg Tab 3.125 MG PO Q12HR Blood Pressure Management #60 TAB Soco Black MD Sep 10, 2016 09:41
--- NOTE | 2016-09-10 09:47 | HHI.FF ---
Face to Face Verification Diagnosis: (1) Congestive heart failure (2) Atrial fibrillation (3) Anasarca (4) Mitral valve regurgitation (5) Tricuspid regurgitation Physical Therapy Order: Evaluate and Treat Home Health Nursing Order: Medical education Signs/symptoms of disease process CHF education Medication education-adverse effect Nursing assessment with vital signs I have seen patient Pratik PatrickJia on 09/10/16. My clinical findings support the need for the requested home health care services because: Ltd mobility - disease progression Patient has SOB I certify that my clinical findings support that this patient is homebound because: Post-op weakness Unsteady gait/balance Soco Black MD Sep 10, 2016 09:47
[2016-09-10] MEDS ORDERED: SACU1TAB PO ×2 (09:49→18:57)
[2016-09-10] MEDS: ENOXAPARIN SODIUM 40 MG/0.4 ML SYRINGE SQ SCH (12:33)
[2016-09-10] MEDS: SACUBITRIL/VALSARTAN 24 MG-26 MG TAB PO SCH (12:33)
[2016-09-10] MEDS: CARVEDILOL 3.125 MG TAB PO SCH (12:33)
[2016-09-10] MEDS: SODIUM CHLORIDE 0.9% FLUSH 10 ML FLUSH IV FLUSH SCH (12:33)
[2016-09-10] MEDS: FUROSEMIDE 40 MG/4 ML VIAL IV PUSH SCH (12:33)
[2016-09-10] MEDS: ASPIRIN EC 81 MG TABEC PO SCH (12:33)
[2016-09-10] MEDS ORDERED: ASPI81CH CHEW (19:07)
== END 2016-09-10 16:00 | disposition home or self-care (01) ==
LOC: NEPA 09:10 → INTOOBSV 11:50 → NEDA 11:50 → N04B 13:25
PROVIDERS: ADMIT Hospitalist; ATTEND Hospitalist
DX: I50.9 Heart failure, unspecified (principal); I48.91 Unspecified atrial fibrillation; N50.89 Other specified disorders of the male genital organs; I08.1 Rheumatic disorders of both mitral and tricuspid valves; Z79.899 Other long term (current) drug therapy
CPT/HCPCS: 71010; 80048; 80053; 80061; 82550; 82552; 83036; 83735; 83880; 84439; 84443; 84484; 85025; 85610; 85730; 93005; 93306; 96374; 97162; 99285; G0378; G8987; G8988; J1650; J1940